=== PATIENT | female | born 1990 | race American Indian/Alaskan Native ===

== ENCOUNTER 2022-01-23 12:27 | Outpatient (CLI) | payer MEDICAID ==
[2022-01-23 13:07] VITALS: BP 127/76
[2022-01-23 14:55] LABS: Bacteria,Urine 4+ /HPF (Negative); Calcium Oxalate Crystals,Urine 3+; Mucus,Urine 3+ /HPF
[2022-01-23 15:07] LABS: Bilirubin,Urine Negative (Negative); Blood,Urine Negative (Negative); Color,Urine Straw (Yellow)
[2022-01-23 15:08] LABS: Urobilinogen,Urine < 2.0 mg/dL (<2.0)
== END 2022-01-23 14:08 | disposition home or self-care (01) ==
LOC: TRG 12:27 → APU 12:29 → TRG 14:08
PROVIDERS: ATTEND Obstetrics & Gynecology
DX: Z34.03 Encounter for supervision of normal first pregnancy, third trimester (principal); Z3A.39 39 weeks gestation of pregnancy
CPT/HCPCS: 59025; 81001; 87086

== ENCOUNTER 2022-01-26 19:38 | Inpatient (IN) | payer MEDICAID ==
[2022-01-26] MEDS ORDERED: OXYTOCIN 10 UNIT/1 ML INJ IM PRN (20:57)
[2022-01-26] MEDS ORDERED: ACETAMINOPHEN 325 MG TAB PO PRN (20:57)
[2022-01-26] MEDS ORDERED: LOPERAMIDE 2 MG CAP PO PRN (20:57)
[2022-01-26] MEDS ORDERED: miSOPROStol 200 MCG TAB PR PRN (20:57)
[2022-01-26] MEDS ORDERED: TERBUTALINE 1 MG/1 ML INJ SUB-Q PRN (20:57)
[2022-01-26] MEDS ORDERED: DINOPROSTONE 10 MG VAG SUPP VG SCH (20:57)
[2022-01-26] MEDS ORDERED: fentaNYL 100 MCG/2 ML INJ IV PRN (20:57)
[2022-01-26] MEDS ORDERED: BUTORPHANOL 2 MG/1 ML INJ IV PRN (20:57)
[2022-01-26] MEDS ORDERED: MINERAL OIL 30 ML ORAL LIQD PO PRN (20:57)
[2022-01-26] MEDS ORDERED: CARBOPROST TROMETHAMINE 250 MCG/1 ML INJ IM PRN (20:57)
[2022-01-26] MEDS ORDERED: METHYLERGONOVINE MALEATE 0.2 MG/ML VIAL IM PRN (20:57)
[2022-01-26] MEDS ORDERED: ePHEDrine SULFATE 50 MG/1 ML INJ IV PRN (20:57)
[2022-01-26] MEDS ORDERED: OXYTOCIN DRIP 30 UNITS/500 ML BAG IV SCH ×2 (21:00)
[2022-01-26] MEDS ORDERED: SODIUM CHLORIDE 0.9% 1000 ML 1,000 ML IV ONE (21:15)
[2022-01-26] MEDS ORDERED: LIDOCAINE (2%) 20 MG/1 ML VIAL 20 ML MDV INFILTRATI ONE (21:15)
[2022-01-26 21:23] LABS: Hematocrit 34.9 % (30.3-42.9); Mean Corpuscular HGB Conc 34 % (30-34); Mean Corpuscular Volume 79 fl (79-97); Platelet Count 277 K/mm3 (140-440); Red Blood Count 4.43 M/mm3 (3.65-5.03); Red Cell Distribution Width 15.1 % (13.2-15.2)
[2022-01-26] MEDS: LACTATED RINGERS 1,000 ML IV SCH (23:17)
--- NOTE | 2022-01-27 08:29 | History and Physical Report ---
History of Present Illness Date of examination: 01/27/22 Date of admission: 01/26/22 19:38 Chief complaint: induction of labor History of present illness: Pt is a 31 year old primigravida LEANA 01/30/22 at 39w4d who presented last night for induction of labor secondary to morbid obesity. She had cervidil placed at midnight. She denies contractions,vaginal bleeding or leakage of fluid this morning. She has had care at [facility] since transfer into care at 34 wks complicated by morbid obedsity, trichomonas treated with negative test of cure, RPR unknown, polyhydramnios in Sep 2021, genital herpes without lesion or prodrome. She is GBS negative. 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, trichomonas (treated with negative test of cure ) Family/Genetic History: diabetes Social history: no significant social history - Obstetrical History Expected Date of Delivery: 01/30/22 Actual Gestation: 39 Week(s) 4 Day(s) : 1 Medications and Allergies Allergies Allergy/AdvReac Type Severity Reaction Status Date / Time No Known Allergies Allergy Verified 01/26/22 21:53 Home Medications Medication Instructions Recorded Confirmed Last Taken Type Ferrous Sulfate [Iron 325 MG] 325 mg PO 01/26/22 Unknown History Vit-Fe Fumar-FA [ 1 tab PO QDAY 01/26/22 01/26/22 Unknown History Vitamin] Valacyclovir HCl [Valacyclovir] 1,000 mg PO 01/26/22 Unknown History Active Meds: Active Medications Acetaminophen (Acetaminophen 325 Mg Tab) 650 mg PO Q4H PRN PRN Reason: Pain, Mild (1-3) Butorphanol Tartrate (Butorphanol 2 Mg/1 Ml Inj) 1 mg IV Q2H PRN PRN Reason: Pain, Moderate(4-6) LABOR PAIN Carboprost Tromethamine (Carboprost Tromethamine 250 Mcg/1 Ml Inj) 250 mcg IM ONCE PRN PRN Reason: Uterine Bleeding Dinoprostone (Dinoprostone 10 Mg Vag Supp) 10 mg VG ONCE KENTON Last Admin: 01/26/22 23:55 Dose: 10 mg Ephedrine Sulfate (Ephedrine Sulfate 50 Mg/1 Ml Inj) 10 mg IV Q2M PRN PRN Reason: Hypotension Fentanyl (Fentanyl 100 Mcg/2 Ml Inj) 100 mcg IV Q2H PRN PRN Reason: Pain,Severe (7-10) LABOR PAIN Oxytocin/Sodium Chloride (Pitocin/Ns 30 Unit/500ml) 30 units in 500 mls @ 2 mls/hr IV TITR KENTON; Protocol Lactated Ringer's (Lactated Ringers) 1,000 mls @ 125 mls/hr IV DIRECT KENTON Last Admin: 01/26/22 23:17 Dose: 125 mls/hr Oxytocin/Sodium Chloride (Pitocin/Ns 30 Unit/500ml) 30 units in 500 mls @ 40 mls/hr IV TITR KENTON; Protocol Loperamide HCl (Loperamide 2 Mg Cap) 2 mg PO ONCE PRN PRN Reason: give with Hemabate Methylergonovine Maleate (Methylergonovine Maleate 0.2 Mg/Ml Vial) 0.2 mg IM ONCE PRN PRN Reason: Uterine Bleeding Mineral Oil (Mineral Oil 30 Ml Oral Liqd) 30 ml PO QHS PRN PRN Reason: Constipation Misoprostol (Misoprostol 200 Mcg Tab) 800 mcg WV ONCE PRN PRN Reason: Uterine Bleeding Oxytocin (Oxytocin 10 Unit/1 Ml Inj) 10 unit IM ONCE PRN PRN Reason: Uterine Bleeding Terbutaline Sulfate (Terbutaline 1 Mg/1 Ml Inj) 0.25 mg SUB-Q ONCE PRN PRN Reason: Hyperstimulation/Hypertonicity Review of Systems All systems: negative - Vital Signs Vital signs: Vital Signs Resp BP Pulse Ox 14 135/69 97 01/26/22 19:57 01/26/22 19:57 01/26/22 19:57 Temp Pulse Resp BP Pulse Ox 98 F 89 20 102/69 98 01/27/22 07:07 01/27/22 08:21 01/27/22 07:07 01/27/22 07:04 01/27/22 08:21 - Physical Exam Breasts: Positive: deferred Abdomen: Positive: soft (obese, gravid ) Uterus: Positive: enlarged (gravid ) Extremities: Positive: edema (trace ) - Obstetrical FHR: auscultation normal Uterine Contraction Monitor Mode: External Cervical Dilatation: 0 (per RN ) Uterine Contraction Pattern: Irregular Uterine Tone Measurement Phase: Resting Uterine Contraction Intensity: Mild Results Result Diagrams: 01/26/22 20:20 Abnormal lab results 01/26/22 Range/Units 20:20 MCH 27 L (28-32) pg All other labs normal. Assessment and Plan A: IUP at 39w4d Morbid Obesity GBS Negative Genital Herpes without lesion or prodrome P: Admit to labor and delivery Continue cervical ripening Continue to closely monitor maternal and status
[2022-01-27] MEDS: LACTATED RINGERS 1,000 ML IV SCH (15:12)
[2022-01-27] MEDS: miSOPROStol 25 MCG TAB VG SCH ×2 (18:36→22:58)
--- NOTE | 2022-01-28 04:21 | Anesthesia Day of Surgery ---
Anesthesia Day of Surgery - Day of Surgery Patient Examined: Yes Patient H&P Reviewed: Yes Patient is NPO: Yes
--- NOTE | 2022-01-28 04:22 | Anesthesia Consultation ---
Anesthesia Consult and Med Hx Date of service: 01/28/22 - Airway Anesthetic Teeth Evaluation: Poor ROM Head & Neck: Adequate Mental/Hyoid Distance: Adequate Mallampati Class: Class II Intubation Access Assessment: Good - Pulmonary Exam CTA: Yes - Cardiac Exam Cardiac Exam: RRR - Pre-Operative Health Status ASA Pre-Surgery Classification: ASA2 Proposed Anesthetic Plan: Spinal - Pulmonary Hx Smoking: No Hx Asthma: No - Cardiovascular System Hx Hypertension: No - Central Nervous System Hx Neuromuscular Disorder: No Hx Seizures: No Hx Psychiatric Problems: No - Endocrine Hx Renal Disease: No Hx Hypothyroidism: No Hx Hyperthyroidism: No - Hematic Hx Anemia: Yes Hx Sickle Cell Disease: No - Other Systems Hx Alcohol Use: No Hx Substance Use: No Hx Obesity: Yes
[2022-01-28] MEDS ORDERED: METOCLOPRAMIDE 10 MG/2 ML INJ ONE (04:46)
[2022-01-28] MEDS ORDERED: BICITRA ORAL LIQD 30ML ONE (04:46)
[2022-01-28] MEDS ORDERED: FAMOTIDINE 20 MG/2 ML INJ IV ONE ×2 (04:46→05:04)
[2022-01-28] MEDS ORDERED: BICITRA ORAL LIQD 30ML PO ONE (05:04)
[2022-01-28] MEDS ORDERED: METOCLOPRAMIDE 10 MG/2 ML INJ IV ONE (05:04)
[2022-01-28] MEDS ORDERED: LACTATED RINGERS 1,000 ML IV SCH (05:15)
[2022-01-28] MEDS ORDERED: ONDANSETRON 4 MG/2 ML INJ ONE (05:25)
[2022-01-28] MEDS ORDERED: LACTATED RINGERS 1,000 ML ONE ×2 (05:34→06:43)
[2022-01-28] MEDS ORDERED: WATER FOR IRRIG STERILE 1,500 ML BOTTLE IR ONE (06:00)
[2022-01-28] MEDS ORDERED: SODIUM CHLORIDE 0.9% IRR 1,500 ML BOTTLE IR ONE (06:00)
[2022-01-28] MEDS ORDERED: OXYTOCIN DRIP 30 UNITS/500 ML BAG IV SCH ×2 (06:00→10:00)
[2022-01-28] MEDS ORDERED: TRANEXAMIC ACID 1,000 MG/10 ML ONE (06:01)
[2022-01-28] MEDS ORDERED: OXYTOCIN 10 UNIT/1 ML INJ ONE (06:06)
[2022-01-28] MEDS ORDERED: KETOROLAC 30 MG/1 ML INJ ONE (06:21)
[2022-01-28] MEDS ORDERED: ePHEDrine SULFATE 50 MG/1 ML INJ ONE (06:22)
[2022-01-28] MEDS ORDERED: BUPIVACAINE/PF (0.25%) 2.5 MG/ML 30 ML VIAL INFILTRATI ONE ×2 (06:24)
[2022-01-28] MEDS ORDERED: dexAMETHasone 20 MG/5 ML VIAL ONE (06:24)
--- NOTE | 2022-01-28 07:00 | Procedure Note ---
OB Delivery Note - Delivery Date of Delivery: 01/28/22 Surgeon: RASHAD LUTHER Estimated blood loss: other (727mL) - Section Preop diagnosis: nonreassuring FHR tracing Postop diagnosis: same section procedure: section, primary low transverse Disposition: PACU Complications: none Narrative: Please see delivery note - Infant A at 1 minute: 8 at 5 minutes: 9 Gender: Female (3180g (7lb 0oz) @ 0559 am)
--- NOTE | 2022-01-28 07:01 | Operative Report ---
Operative Report Operative Report: Date of procedure: January 28, 2022 Preoperative diagnosis: 1) IUP at 39w5d 2) Morbid Obesity BMI 43 Postoperative diagnosis: Same Procedure: Primary low transverse section Surgeon: Viviana Alvarez M.D. Anesthesia: Regional Findings: 1) Viable female , Apgars 8 and 9, weight 3180 g, (7 lb 0 oz) in cephalic presentation. Nuchal cord x 1 2) Normal-appearing uterus ovaries and tubes Estimated blood loss: 727 mL IV fluids: 2600 mL Urine output: 350 mL, clear at the end of the procedure Drains: Guaman to gravity Specimens: None Complications:None. Counts correct x 3 Disposition: Stable to PACU Indication for procedure: Pt is a 31 year old primigravida at 39w5d initially admitted for induction secondary to morbid obesity. She progressed to 1 cm and begin having repetitive late decelerations despite resuscitation measures. The decision was made to proceed with section. Operation in detail: After the risks, benefits, alternatives and complications were explained to the patient she gave informed consent for the procedure. She was subsequently taken to the operating room where regional anesthesia was noted to be adequate. She was placed in the dorsal supine position with leftward tilt and prepped and draped in a normal sterile fashion. heart tones were noted prior to incision. A timeout was performed. A Pfannenstiel skin incision was made with the knife and carried down to the layer of the fascia with the Bovie. The fascia was incised in the midline and the fascial incision was extended bilaterally with the Bovie. The fascial incision was then stretched. The rectus muscles were then in the midline for adequate visualization. The peritoneum was then entered bluntly. The peritoneal incision was extended with good visualization of the bladder. The peritoneal incision was then stretched. An Saúl retractor was placed. The bladder blade was then placed. The vesicouterine peritoneum was grasped with smooth pick ups and incised with Metzenbaum scissors. A bladder flap was then created digitally and the bladder blade was replaced. A transverse incision was made in the lower uterine segment with a knife and extended bilaterally with the bandage scissors. Amniotomy was performed with egress of meconium fluid. head delivered with ease, followed by shoulders and body. bulb suctioned at delivery. Cord clamped and cut. handed to NICU staff in attendance. The placenta was then delivered manually. The uterus was then cleared of all clots and debris. The hysterotomy was then reapproximated with 0 Monocryl in a running locked fashion. A second layer of the same suture was used in imbricating fashion. The hysterotomy was inspected and hemostasis was noted. The gutters were irrigated and cleared of all clots and debris. The hysterotomy was again inspected and noted to be hemostatic. Surgicel was placed over the hysterotomy. The Saúl retractor was removed. The peritoneum was reapproximated with 0 Monocryl in a running fashion incorporating the rectus muscles. Surgicel was placed over the rectus muscles. The fascia was reapproximated with 0 Vicryl in a running fashion. The subcutaneous tissue was reapproximated with 3-0 Vicryl in a running fashion. The skin was reapproximated with 3-0 Monocryl in a subcuticular fashion. The incision was then covered with steri strips and a pressure dressing. The procedure was then ended. The patient tolerated the procedure well and was taken to the PACU in stable condition. All instrument, lap, and needle counts were correct 3.
--- NOTE | 2022-01-28 07:26 | Progress Note ---
Spinal Anesthesia Block - Spinal Anesthesia Block Start Time: 05:12 Stop Time: 05:14 Performed by:: NEIL TAY Procedure: Patient IDed, H&P reviewed, all questions and concerns were answered, and consent was signed. Timeout was performed at bedside. Patient in sitting position. Sterile prep and drape was performed. [3] ml of 1% lidocaine skin wheal at L[3]- L [4]. Needle introducer advanced. 25 gauge spinal needle advanced x 1 attempt. Clear, free flowing CSF. negative blood, negative paresthesia. Spinal dose given. All needles removed. Patient tolerated procedure.
--- NOTE | 2022-01-28 07:29 | Progress Note ---
Regional Anesthesia Block - Regional Anesthesia Block Start Time: 07:00 Stop Time: 07:03 Performed By:: NEIL TAY Procedure: Patient consented for TAP block for post surgical pain management. Patient identified, monitors placed, and time out performed. TAP identified bilaterally via ultrasound. Skin prepped bilaterally with [chlorhexidine] and [22g stimuplex] needle advanced to the TAP. [Marcaine 0.25% 30ml] injected under ultrasound guidance on the [left] side. [Marcaine 0.25% 30ml] injected under ultrasound guidance on the [right] side. Negative aspiration every 5mL, No change in heart rate or rhythm. Patient tolerated the procedure well. No apparent complications seen.
[2022-01-28] MEDS ORDERED: LANOLIN/ZINC/DIMETHICONE (LANSINOH) 7 GM TP PRN (10:00)
[2022-01-28] MEDS ORDERED: D5W/LACTATED RINGERS 1,000 ML IV SCH (10:00)
[2022-01-28] MEDS ORDERED: ONDANSETRON 4 MG/2 ML INJ IV PRN (10:00)
[2022-01-28] MEDS ORDERED: NALOXONE 0.4 MG/1 ML INJ IV PRN (10:00)
[2022-01-28] MEDS ORDERED: MORPHINE 2 MG/1 ML INJ IV PRN (10:00)
[2022-01-28] MEDS ORDERED: MORPHINE 4 MG/1 ML INJ IV PRN (10:00)
[2022-01-28] MEDS ORDERED: WITCH HAZEL/ GLYCERIN PAD TP PRN (10:00)
[2022-01-28] MEDS ORDERED: SIMETHICONE 80 MG CHEW TAB PO PRN (10:00)
[2022-01-28] MEDS: KETOROLAC 30 MG/1 ML INJ IV SCH ×3 (11:20→21:18)
[2022-01-28] MEDS: ceFAZolin/NS 1 GM/50 ML 1 GM/50 ML BAG IV SCH ×2 (12:44→21:19)
[2022-01-28 21:05] LABS: Hematocrit 32.4 % (30.3-42.9); Hemoglobin 10.6 gm/dl (10.1-14.3)
[2022-01-29] MEDS: KETOROLAC 30 MG/1 ML INJ IV SCH (04:42)
[2022-01-29] MEDS ORDERED: MEASLES, MUMPS & RUBELLA 12,500 UNIT/0.5 ML VACCINE SUB-Q ONE (07:13)
[2022-01-29] MEDS ORDERED: TETANUS,DIPH,PERTUSS(ACELL) VACCINE 0.5 ML SYRINGE IM ONE (07:13)
--- NOTE | 2022-01-29 07:33 | Post Anesthesia Evaluation ---
- Post Anesthesia Evaluation Patient Participated: Yes Airway Patent: Yes Stable Respiratory Function: Yes Nausea/Vomiting: No Temp > 96.8F: Yes Pain Manageable: Yes Adequeate Hydration: Yes Anesthesia Complications: No Block Receding Appropriately: Yes Patient on Ventilator: No
--- NOTE | 2022-01-29 08:14 | Progress Note ---
Assessment and Plan - Patient Problems (1) Status post primary low transverse section Current Visit: Yes Status: Acute Plan to address problem: Continue routine PP orders Keep dressing clean and dry, remove dressing on POD#2 Anticipate d/c home in 24-48 hrs if stable (2) Morbid obesity with BMI of 40.0-44.9, adult Current Visit: Yes Status: Acute (3) Anemia Current Visit: Yes Status: Acute Qualifiers: Anemia type: other cause Other causes of anemia: acute posthemorrhagic Qualified Code(s): D62 - Acute posthemorrhagic anemia Plan to address problem: Asymptomatic Increase iron rich foods into diet Subjective - Subjective Date of service: 01/29/22 Principal diagnosis: S/P primary C/S; POD#1 Interval history: Pt is a 31 year old primigravida LEANA 01/30/22 at 39w4d who presented last night for induction of labor secondary to morbid obesity. She had cervidil placed at midnight. She denies contractions,vaginal bleeding or leakage of fluid this morning. She has had care at [facility] since transfer into care at 34 wks complicated by morbid obedsity, trichomonas treated with negative test of cure, RPR unknown, polyhydramnios in Sep 2021, genital herpes without lesion or prodrome. She is GBS negative. She progressed to 1 cm and begin having repetitive late decelerations despite resuscitation measures. The decision was made to proceed with section. Delivered viable female . Patient reports: appetite normal, voiding normally, pain well controlled (with medications), flatus, ambulating normally, no bowel movement : doing well, bottle feeding (and ) Objective - Vital Signs Latest vital signs: Vital Signs Temp Pulse Resp BP BP Pulse Ox Pulse Ox 01/29/22 04:57 98.0 F 86 18 96 01/29/22 04:55 98 F 79 18 116/75 98 01/29/22 00:33 97.8 F 92 H 18 115/60 99 01/28/22 20:51 97.8 F 93 H 20 115/64 98 01/28/22 20:50 98 01/28/22 16:22 98.0 F 109 H 20 112/66 95 01/28/22 11:27 97.9 F 75 20 139/75 97 01/28/22 08:25 99.1 F 81 18 127/69 100 Intake and Output 01/28/22 01/29/22 01/29/22 23:59 07:59 15:59 Intake Total 480 960 Output Total 500 600 Balance -20 360 Intake: Oral 240 Intake, Free Water 240 960 Output: Urine 500 600 Indwelling Catheter 300 Void 200 600 Other: Total, Intake Amount 240 Total, Output Amount 200 400 - Exam Breasts: Present: normal Cardiovascular: Present: Regular rate Lungs: Present: Normal air movement Abdomen: Present: soft, tenderness Uterus: Present: firm, fundal height below umbilicus (U-2) Extremities: Present: normal Deep Tendon Reflex Grade: Normal +2 Incision: Present: dressed (no shadow dressing or bleeding noted)
[2022-01-29] MEDS: IBUPROFEN 800 MG TAB PO PRN ×2 (10:31→21:46)
[2022-01-29] MEDS: oxyCODONE /ACETAMINOPHEN 5-325MG TAB PO PRN (18:16)
[2022-01-30] MEDS: oxyCODONE /ACETAMINOPHEN 5-325MG TAB PO PRN ×2 (02:56→09:48)
[2022-01-30] MEDS: IBUPROFEN 800 MG TAB PO PRN ×2 (06:24→13:46)
--- NOTE | 2022-01-30 08:55 | Discharge Summary ---
Providers - Providers Date of Admission: 01/26/22 19:38 Date of discharge: 01/30/22 Attending physician: RASHAD LUTHER 01/28/22 09:43 Consult to Lining Presser [CONS] Routine Reason For Exam: Primary care physician: RASHAD LUTHER Hospitalization Reason for admission: induction of labor Delivery: Procedure: primary low transverse Episiotomy: none Laceration: none Incision: dry, intact (steri-strips intact) Other procedures: none complications: none Discharge diagnosis: IUP at term delivered baby: female Hospital course: Pt is a 31 year old primigravida LEANA 01/30/22 at 39w4d who presented last night for induction of labor secondary to morbid obesity. She had cervidil placed at midnight. She denies contractions,vaginal bleeding or leakage of fluid this morning. She has had care at [facility] since transfer into care at 34 wks complicated by morbid obedsity, trichomonas treated with negative test of cure, RPR unknown, polyhydramnios in Sep 2021, genital herpes without lesion or prodrome. She is GBS negative. She progressed to 1 cm and begin having repetitive late decelerations despite resuscitation measures. The decision was made to proceed with section. Delivered viable female . course uncomplicated, met discharge criteria on POD#2 and wishes to go home if baby is good for discharge also. Condition at discharge: Good Disposition: 01 HOME / SELF CARE / HOMELESS - Discharge Diagnoses (1) Status post primary low transverse section Status: Acute (2) Morbid obesity with BMI of 40.0-44.9, adult Status: Acute (3) Anemia Status: Acute Qualifiers: Anemia type: other cause Other causes of anemia: acute posthemorrhagic Qualified Code(s): D62 - Acute posthemorrhagic anemia Plan - Discharge Medications Prescriptions: Ibuprofen [Motrin] 800 mg PO Q8HR PRN #30 tablet PRN Reason: Pain, Moderate (4-6) oxyCODONE /ACETAMINOPHEN [Percocet 5/325] 1 tab PO Q6HR PRN #30 tablet PRN Reason: Pain - Provider Discharge Summary Activity: routine, no sex for 6 weeks, no heavy lifting 4 weeks, no strenuous exercise Diet: other (Iron rich diet) Instructions: routine Additional instructions: [] Smoking cessation referral if applicable(refer to patient education folder for contact #) [] Refer to [facility] Booklet Call your doctor immediately for: * Fever > 100.5 * Heavy vaginal bleeding ( >1 pad per hour) * Severe persistent headache * Shortness of breath * Reddened, hot, painful area to leg or breast * Drainage or odor from incision. * Keep incision clean and dry at all times and follow doctor's instructions regarding bathing/showering - Follow up plan Follow up: RASHAD LUTHER MD [Primary Care Provider] - 14 Days Forms: Work/School Release Form
[2022-01-30 12:39] VITALS: BP 116/65
== END 2022-01-30 14:00 | disposition home or self-care (01) | DRG 765 ==
LOC: LD 19:38 → APU 01-28 04:58 → OB 01-28 08:15
PROVIDERS: ADMIT Obstetrics & Gynecology; ATTEND Obstetrics & Gynecology
PROC: 10D00Z1 Extraction of Products of Conception, Low, Open Approach (ICD-10-PCS; principal; 2022-01-28)
PROC: 3E0234Z Introduction of Serum, Toxoid and Vaccine into Muscle, Percutaneous Approach (ICD-10-PCS; 2022-01-29)
PROC: 3E0134Z Introduction of Serum, Toxoid and Vaccine into Subcutaneous Tissue, Percutaneous Approach (ICD-10-PCS; 2022-01-29)
DX: O76 Abnormality in fetal heart rate and rhythm complicating labor and delivery (principal); O98.32 Other infections with a predominantly sexual mode of transmission complicating childbirth; D62 Acute posthemorrhagic anemia; O69.81X0 Labor and delivery complicated by cord around neck, without compression, not applicable or unspecified; O99.214 Obesity complicating childbirth; E66.01 Morbid (severe) obesity due to excess calories; A60.00 Herpesviral infection of urogenital system, unspecified; O90.81 Anemia of the puerperium; Z20.822 Contact with and (suspected) exposure to COVID-19; Z3A.39 39 weeks gestation of pregnancy; Z37.0 Single live birth; Z23 Encounter for immunization
CPT/HCPCS: 36415; 59200; 85014; 85018; 85027; 86592; 86850; 86900; 86901; 99211; G0378; J3490; J7060; J7121; G0463; J0595; J0690; J1100; J1885; J2405; J2590; J2765; J7030; J7120; U0003